=== PATIENT | female | born 1985 | race Caucasian/White ===

== ENCOUNTER 2017-11-17 08:42 | Emergency (ER) | payer OTHER ==
[~2017-11-17] VITALS: Ht 170.2 cm; Wt 60.0 kg
[2017-11-17 08:46] VITALS: BP 123/67; PULSE 97; RESP 16; TEMP 97.9; O2SAT 100
--- NOTE | 2017-11-17 09:13 | PD ---
HPI Chief Complaint: Pain: Acute or Chronic Time Seen by Provider: 08:54 Travel History International Travel<30 days: No Contact w/Intl Traveler<30days: No Traveled to known affect area: No History of Present Illness HPI 32-year-old female presents emergency department with multiple medical complaints. Says her left hand started swelling approximately 2 days ago and is painful. Says she woke up this with this pain. She denies injury or other trauma to the area. Patient describes the pain as burning and difficulty moving the hand secondary to pain. Patient states that she immersed her hand and salt water and this relieves her pain slightly. Says that heat worsens her pain and cold packs decrease her pain. Patient also states she is concerned about abnormal vaginal bleeding that she has had this month. Patient states that she had a unusually light menses November 06 which stopped but then states she started spotting this week. States that she had a 'clot' discharged yesterday. States she had some left lower quadrant cramping with radiation to her midpelvic region earlier this week but has since resolved. She denies vaginal discharge aside from the bleeding. States that she has a history of ectopic pregnancies 2 and is concerned this may be an ectopic . Patient does not use contraception. She has 1 sexual partner. Patient denies dysuria or other urinary symptoms. Last bowel movement this morning which is normal. She denies chronic medical conditions or medication use. Denies IV drug or other illicit drugs. States she takes Tylenol Motrin for occasional pains. PFSH Past Medical History ?: Unknown LMP: 11/06/17 Social History Tobacco Use: Yes Allergies-Medications (Allergen,Severity, Reaction): Coded Allergies: No Known Allergies (Verified Allergy, Unknown, 11/17/17) Reported Meds & Prescriptions Reported Meds & Active Scripts Active Diflucan (Fluconazole) 150 Mg Tab 150 Mg PO ONCE Take 1 tab 3 days after antibiotics. Bactrim DS (Sulfamethoxazole-Trimethoprim) 800-160 Mg Tab 1 Tab PO BID Keflex (Cephalexin) 500 Mg Cap 500 Mg PO Q8H 7 Days Review of Systems Except as stated in HPI: all other systems reviewed are Neg Physical Exam Narrative GENERAL: Well-developed, well-nourished in no apparent distress resting comfortably in bed SKIN: Focused skin assessment warm/dry. HEAD: Atraumatic. Normocephalic. EYES: Pupils equal and round. No scleral icterus. No injection or drainage. ENT: No nasal bleeding or discharge. Mucous membranes pink and moist. NECK: Trachea midline. No JVD. CARDIOVASCULAR: Regular rate and rhythm. No murmur appreciated. RESPIRATORY: No accessory muscle use. Clear to auscultation. Breath sounds equal bilaterally. GASTROINTESTINAL: Abdomen soft, non-tender, nondistended. No CVA tenderness GENITOURINARY: Normal external genitalia without lesions or erythema. Vaginal vault without blood. Cervical os was closed without drainage. No cervical motion tenderness. Uterus nontender and nonenlarged. Bilateral adnexa nontender without masses. MUSCULOSKELETAL: No obvious deformities. No clubbing. No cyanosis. No edema. Left hand-dorsal hand demonstrates erythema with mild edema just distal to the wrist between the first and second digits. Neurovascularly intact. NEUROLOGICAL: Awake and alert. No obvious cranial nerve deficits. Motor grossly within normal limits. Normal speech. PSYCHIATRIC: Appropriate mood and affect; insight and judgment normal. Data Data Last Documented VS Vital Signs Date Time Temp Pulse Resp B/P (MAP) Pulse Ox O2 Delivery O2 Flow Rate FiO2 11/17/17 11:52 75 18 130/70 (90) 98 11/17/17 08:46 97.9 Orders Orders Beta Hcg (Quant/Titer) (11/17/17 09:03) Complete Blood Count With Diff (11/17/17 09:03) Comprehensive Metabolic Panel (11/17/17 09:03) Urinalysis - C+S If Indicated (11/17/17 09:03) Act Partial Throm Time (Ptt) (11/17/17 09:03) Prothrombin Time / Inr (Pt) (11/17/17 09:03) Hand, Complete ([id number]) (11/17/17 ) Urine Culture (11/17/17 09:20) Sulfamet-Trimeth Ds 800-160 Mg (Bactrim (11/17/17 11:15) Cephalexin (Keflex) (11/17/17 11:15) Ed Discharge Order (11/17/17 11:10) Labs Laboratory Tests Test 11/17/17 09:20 11/17/17 09:40 Urine Color YELLOW Urine Turbidity CLOUDY Urine pH 6.5 Urine Specific [place] 1.009 Urine Protein TRACE mg/dL Urine Glucose (UA) NEG mg/dL Urine Ketones NEG mg/dL Urine Occult Blood MOD Urine Nitrite NEG Urine Bilirubin NEG Urine Urobilinogen LESS THAN 2.0 MG/DL Urine Leukocyte Esterase NEG Urine RBC LESS THAN 1 /hpf Urine WBC 10 /hpf Urine Squamous Epithelial Cells 68 /hpf Urine Bacteria FEW /hpf Urine Yeast with Hyphae OCC Microscopic Urinalysis Comment CULTURE INDICATED White Blood Count 11.5 TH/MM3 Red Blood Count 4.77 MIL/MM3 Hemoglobin 14.2 GM/DL Hematocrit 41.8 % Mean Corpuscular Volume 87.7 FL Mean Corpuscular Hemoglobin 29.7 PG Mean Corpuscular Hemoglobin Concent 33.9 % Red Cell Distribution Width 14.5 % Platelet Count 242 TH/MM3 Mean Platelet Volume 8.3 FL Neutrophils (%) (Auto) 77.6 % Lymphocytes (%) (Auto) 14.5 % Monocytes (%) (Auto) 7.0 % Eosinophils (%) (Auto) 0.5 % Basophils (%) (Auto) 0.4 % Neutrophils # (Auto) 8.9 TH/MM3 Lymphocytes # (Auto) 1.7 TH/MM3 Monocytes # (Auto) 0.8 TH/MM3 Eosinophils # (Auto) 0.1 TH/MM3 Basophils # (Auto) 0.0 TH/MM3 CBC Comment DIFF FINAL Differential Comment Prothrombin Time 10.4 SEC Prothromb Time International Ratio 1.0 RATIO Activated Partial Thromboplast Time 31.0 SEC Blood Urea Nitrogen 8 MG/DL Creatinine 0.87 MG/DL Random Glucose 81 MG/DL Total Protein 7.9 GM/DL Albumin 4.4 GM/DL Calcium Level 9.7 MG/DL Alkaline Phosphatase 69 U/L Aspartate Amino Transf (AST/SGOT) 18 U/L Alanine Aminotransferase (ALT/SGPT) 19 U/L Total Bilirubin 0.3 MG/DL Sodium Level 136 MEQ/L Potassium Level 4.1 MEQ/L Chloride Level 102 MEQ/L Carbon Dioxide Level 26.3 MEQ/L Anion Gap 8 MEQ/L Estimat Glomerular Filtration Rate 76 ML/MIN Human Chorionic Gonadotropin, Quant LESS THAN 1 MIU/ML MDM Medical Decision Making Medical Screen Exam Complete: Yes Emergency Medical Condition: Yes Differential Diagnosis ectopic , painful vaginal bleeding, left hand cellulitis, abscess, fracture. Narrative Course 32-year-old female presents emergency department with multiple complaints. States that her really since her period November 06. She is concerned that it may be an ectopic as she has had these before. Vital stable. Patient is afebrile. Exam findings suggestive of cellulitis left hand. Pelvic exam essentially unremarkable except for blood in the vaginal vault. No discharge or odor. Labs and imaging studies ordered. Last Impressions Hand X-Ray 11/17/17 0000 Signed Impressions: Service Date/Time: Friday, November 17, 2017 09:28 - CONCLUSION: 1. Negative examination. Chin Moran MD First dose of Keflex and Bactrim will be administered emergency department today. Patient will be prescribed Keflex and Bactrim for her cellulitis. Urinalysis possibly suggestive of a urinary tract infection. These medications will cover this as well. Yeast from the urine, will cover with Diflucan advised to use after the course of antibiotics. There was no evidence of vaginal candidiasis today. Diagnosis Primary Impression: Cellulitis Qualified Codes: L03.114 - Cellulitis of left upper limb Additional Impression: Abnormal vaginal bleeding Referrals: Color Straining Bag Washer Additional Instructions: Follow-up with the electronics research engineer as discussed. Take all medications as prescribed. Follow-up with primary care physician this month as discussed. Scripts Fluconazole (Diflucan) 150 Mg Tab 150 MG PO ONCE for Infection, #1 TAB 0 Refills Take 1 tab 3 days after antibiotics. Prov: Lizeth Flores 11/17/17 Sulfamethoxazole-Trimethoprim (Bactrim DS) 800-160 Mg Tab 1 TAB PO BID for Infection, #14 TAB 0 Refills Prov: Lizeth Flores 11/17/17 Cephalexin (Keflex) 500 Mg Cap 500 MG PO Q8H for Infection for 7 Days, #21 CAP 0 Refills Prov: Lizeth Flores 11/17/17 Disposition: 01 DISCHARGE HOME Condition: Stable Lizeth Flores Nov 17, 2017 09:13
--- NOTE | 2017-11-17 09:48 | RADRPT ---
EXAM DATE/TIME: 11/17/2017 09:28 [place] COMPARISON: No previous studies available for comparison. INDICATIONS : Left hand pain and swelling after a possible bite. MEDICAL HISTORY : None. SURGICAL HISTORY : None. ENCOUNTER: Initial ACUITY: 3 days PAIN SCORE: 6/10 LOCATION: Left anterior thumb FINDINGS: Three view examination of the left hand demonstrates no soft tissue swelling, dislocation, or fractur e. The carpal bones appear intact. The interphalangeal and metacarpophalangeal joints are intact. Bony mineralization is normal. CONCLUSION: 1. Negative examination. Chin Moran MD on November 17, 2017 at 9:43 Board Certified Radiologist. This report was verified electronically.
[2017-11-17 10:13] LABS: AUTOMATED NEUTROPHIL # 8.9 TH/MM3 (1.8-7.7); BASOPHIL % 0.4 % (0.0-2.0); EOSINOPHIL # 0.1 TH/MM3 (0-0.4); EOSINOPHIL % 0.5 % (0.0-4.0); HEMATOCRIT 41.8 % (35.0-46.0); HEMOGLOBIN 14.2 GM/DL (11.6-15.3); LYMPH % 14.5 % (9.0-44.0); LYMPHOCYTE # 1.7 TH/MM3 (1.0-4.8); MEAN CELL VOLUME 87.7 FL (80.0-100.0); MEAN CORPUSCULAR HEMOGLOBIN 29.7 PG (27.0-34.0); MEAN CORPUSCULAR HGB CONC 33.9 % (32.0-36.0); MEAN PLATELET VOLUME 8.3 FL (7.0-11.0); MONOCYTE # 0.8 TH/MM3 (0-0.9); NEUT % 77.6 % (16.0-70.0); PLATELET COUNT 242 TH/MM3 (150-450); RED BLOOD COUNT 4.77 MIL/MM3 (4.00-5.30); RED CELL DISTRIBUTION WIDTH 14.5 % (11.6-17.2); WHITE BLOOD COUNT 11.5 TH/MM3 (4.0-11.0)
[2017-11-17 10:22] LABS: PROTHROMBIN TIME - PATIENT 10.4 SEC (9.8-11.6)
[2017-11-17 10:33] LABS: ALT (GPT) 19 U/L (10-53)
[2017-11-17 10:36] LABS: ALKALINE PHOSPHATASE 69 U/L (45-117); TOTAL BILIRUBIN ADULT 0.3 MG/DL (0.2-1.0); TOTAL PROTEIN 7.9 GM/DL (6.4-8.2)
[2017-11-17 10:36] LABS: BACTERIA, URINE FEW /hpf; BILIRUBIN, URINE NEG (NEG); BLOOD, URINE MOD (NEG); GLUCOSE,URINE NEG (NEG); KETONE, URINE NEG (NEG); NITRITE,URINE NEG (NEG); PH, URINE 6.5 (5.0-8.5); SQUAMOUS EPITHELIAL CELL URINE 68 /hpf (0-5); URINE COLOR YELLOW (YELLW/STRAW); URINE LEUKOCYTE ESTERASE NEG (NEG)
[2017-11-17] MEDS ORDERED: CEPH-460 PO (10:48)
[2017-11-17] MEDS ORDERED: BACT800T5 PO (10:48)
--- NOTE | 2017-11-17 10:57 | PD ---
Physical Exam Date Seen by Provider: Nov 17, 2017 Narrative This patient presents with 2 complaints. She has left lower quadrant abdominal pain and she has cellulitis of her left hand Data Data Last Documented VS Vital Signs Date Time Temp Pulse Resp B/P (MAP) Pulse Ox O2 Delivery O2 Flow Rate FiO2 11/17/17 08:46 97.9 97 16 123/67 (85) 100 Orders Orders Beta Hcg (Quant/Titer) (11/17/17 09:03) Complete Blood Count With Diff (11/17/17 09:03) Comprehensive Metabolic Panel (11/17/17 09:03) Urinalysis - C+S If Indicated (11/17/17 09:03) Act Partial Throm Time (Ptt) (11/17/17 09:03) Prothrombin Time / Inr (Pt) (11/17/17 09:03) Hand, Complete ([id number]) (11/17/17 ) Urine Culture (11/17/17 09:20) Labs Laboratory Tests Test 11/17/17 09:20 11/17/17 09:40 Urine Color YELLOW Urine Turbidity CLOUDY Urine pH 6.5 Urine Specific [place] 1.009 Urine Protein TRACE mg/dL Urine Glucose (UA) NEG mg/dL Urine Ketones NEG mg/dL Urine Occult Blood MOD Urine Nitrite NEG Urine Bilirubin NEG Urine Urobilinogen LESS THAN 2.0 MG/DL Urine Leukocyte Esterase NEG Urine RBC LESS THAN 1 /hpf Urine WBC 10 /hpf Urine Squamous Epithelial Cells 68 /hpf Urine Bacteria FEW /hpf Urine Yeast with Hyphae OCC Microscopic Urinalysis Comment CULTURE INDICATED White Blood Count 11.5 TH/MM3 Red Blood Count 4.77 MIL/MM3 Hemoglobin 14.2 GM/DL Hematocrit 41.8 % Mean Corpuscular Volume 87.7 FL Mean Corpuscular Hemoglobin 29.7 PG Mean Corpuscular Hemoglobin Concent 33.9 % Red Cell Distribution Width 14.5 % Platelet Count 242 TH/MM3 Mean Platelet Volume 8.3 FL Neutrophils (%) (Auto) 77.6 % Lymphocytes (%) (Auto) 14.5 % Monocytes (%) (Auto) 7.0 % Eosinophils (%) (Auto) 0.5 % Basophils (%) (Auto) 0.4 % Neutrophils # (Auto) 8.9 TH/MM3 Lymphocytes # (Auto) 1.7 TH/MM3 Monocytes # (Auto) 0.8 TH/MM3 Eosinophils # (Auto) 0.1 TH/MM3 Basophils # (Auto) 0.0 TH/MM3 CBC Comment DIFF FINAL Differential Comment Prothrombin Time 10.4 SEC Prothromb Time International Ratio 1.0 RATIO Activated Partial Thromboplast Time 31.0 SEC Total Protein 7.9 GM/DL Alkaline Phosphatase 69 U/L Alanine Aminotransferase (ALT/SGPT) 19 U/L Total Bilirubin 0.3 MG/DL Human Chorionic Gonadotropin, Quant LESS THAN 1 MIU/ML MDM Supervised Visit with HUGH: Yes Narrative Course I, Dr. Goff, have reviewed the advance practice practitioner's documentation and am in agreement, met with the patient face to face, made the diagnosis, and the medical decision making was done by me. *My assessment and Findings: Left hand has redness, warmth and swelling diffusely on the dorsal aspect of the hand. She is able to move her fingers. Abdomen is soft but does have some tenderness to palpation just above the left symphysis pubis. test is negative. Please see Lizeth Flores PA-C's note for further details, lab and radiology results, final diagnosis and disposition. Diagnosis Primary Impression: Cellulitis Qualified Codes: L03.114 - Cellulitis of left upper limb Referrals: Flight/Transport Nurse Additional Instruction: Follow-up with the sandstone splitter as discussed. Take all medications as prescribed. Scripts Sulfamethoxazole-Trimethoprim (Bactrim DS) 800-160 Mg Tab 1 TAB PO BID for Infection, #14 TAB 0 Refills Prov: Lizeth Flores 11/17/17 Cephalexin (Keflex) 500 Mg Cap 500 MG PO Q8H for Infection for 7 Days, #21 CAP 0 Refills Prov: Lizeth Flores 11/17/17 Disposition: 01 DISCHARGE HOME Condition: Stable Susana Goff MD Nov 17, 2017 10:57
[2017-11-17 11:04] LABS: ALBUMIN 4.4 GM/DL (3.4-5.0); AST (GOT) 18 U/L (15-37); BICARBONATE 26.3 MEQ/L (21.0-32.0); BLOOD UREA NITROGEN 8 MG/DL (7-18); CALCIUM 9.7 MG/DL (8.5-10.1); CHLORIDE 102 MEQ/L (98-107); CREATININE 0.87 MG/DL (0.50-1.00); GLOMERULAR FILTRATION RATE 76 ML/MIN (>89); GLUCOSE,RANDOM 81 MG/DL (74-106); SODIUM (NA) 136 MEQ/L (136-145)
[2017-11-17] MEDS ORDERED: DIFL150T PO (11:07)
[2017-11-17] MEDS ORDERED: CEPHALEXIN MONOHYDRATE 500 MG CAP PO ONE (11:15)
[2017-11-17] MEDS ORDERED: SULFAMETHOXAZOLE-TRIMETHOPRIM DS 800-160 MG TAB PO ONE (11:15)
[2017-11-17 11:52] VITALS: BP 130/70
== END 2017-11-17 11:55 | disposition home or self-care (01) ==
LOC: NEPD 08:42
DX: L03.114 Cellulitis of left upper limb (principal); R10.32 Left lower quadrant pain; R82.71 Bacteriuria; N93.9 Abnormal uterine and vaginal bleeding, unspecified
CPT/HCPCS: 73130; 80053; 81001; 84702; 85025; 85610; 85730; 87086; 99284

== ENCOUNTER 2017-12-06 08:51 | Emergency (ER) | payer SELFPAY ==
[~2017-12-06] VITALS: Ht 170.2 cm; Wt 60.0 kg
[~2017-12-06 08:51] MED LIST: BACT800T5 PO; CEPH-460 PO; DIFL150T PO
[2017-12-06 08:54] VITALS: BP 119/58; PULSE 87; RESP 15; TEMP 97.7; O2SAT 99
[2017-12-06] MEDS ORDERED: PAXI10TA8 PO (09:20)
[2017-12-06] MEDS ORDERED: PROPARACAINE HCL 0.5% OPHT SOLN 15 ML BTL LEFT EYE ONE (09:45)
[2017-12-06] MEDS ORDERED: POLY10O LEFT EYE (09:50)
--- NOTE | 2017-12-06 09:50 | PD ---
HPI Chief Complaint: Eye Problems/Injury Time Seen by Provider: 09:26 Travel History International Travel<30 days: No Contact w/Intl Traveler<30days: No Traveled to known affect area: No History of Present Illness HPI 32-year-old female presents to the emergency department with concern of left pink eye 3 days. Reports her eye is itchy, dry, and draining purulent drainage. She is waking up in the mornings with her eye crusted shut. Denies eye trauma or pain. Denies fever, vomiting, change in vision. No others with similar symptoms that she knows of. Has tried [id number] eyedrops for symptom management. Symptoms are mild in severity. No known aggravating or relieving factors. She is also asking for information on where she can go to get prescriptions for her bipolar manic depression psych medications. She has been off them for 2 years. She denies suicidal or homicidal ideations. Primary care provider is Dr. Bran. No known allergies. Denies significant past medical history. Has no other medical complaints. No other modifying factors or associated signs and symptoms. PFSH Past Medical History Bipolar Disorder: Yes Depression: Yes Diminished Hearing: No Immunizations Current: Yes Tetanus Vaccination: < 5 Years ?: Not Ectopic : Yes Dilation and Curettage (D&C): Yes Past Surgical History Surgical History: No Previous Surgery Gynecologic Surgery: Yes (TUMOR REMOVED ) Social History Alcohol Use: No Tobacco Use: Yes Substance Use: No (DENIES ) Allergies-Medications (Allergen,Severity, Reaction): Coded Allergies: No Known Allergies (Verified Allergy, Unknown, 12/06/17) Reported Meds & Prescriptions Reported Meds & Active Scripts Active Polytrim Opth Drops (Polymyxin/Trimethoprim Sulfate) 10,000-0.1 Unit/Ml-% Soln 2 Drop LEFT EYE Q6HR 7 Days Reported Paxil (Paroxetine HCl) 10 Mg Tab 10 Mg PO DAILY Review of Systems Except as stated in HPI: all other systems reviewed are Neg Physical Exam Narrative GENERAL: Well-nourished, well-developed patient, in no acute distress SKIN: Warm and dry. HEAD: Atraumatic. Normocephalic. EYES: Pupils equal and round at 3 mm with brisk reaction. PERRLA. EOMI. left lid eversion with no foreign body noted. Left eye with scleral erythema and mild lid edema. No orbital tenderness, erythema or cellulitis. Left eye with photophobia. No consensual photophobia. No scleral icterus. Clear drainage; crusted drainage noted to upper and lower eyelashes into the inner canthus. Lerner lamp exam normal. ENT: Mucosa pink and moist. Airway patent. NECK: Trachea midline. CARDIOVASCULAR: Regular rate. GASTROINTESTINAL: Flat. RESPIRATORY: No accessory muscle use. NEUROLOGICAL: Awake and alert. Oriented 3. No obvious cranial nerve deficits. Motor grossly within normal limits. Normal speech. PSYCHIATRIC: Appropriate mood and affect; insight and judgment normal. Data Data Last Documented VS Vital Signs Date Time Temp Pulse Resp B/P (MAP) Pulse Ox O2 Delivery O2 Flow Rate FiO2 12/06/17 08:54 97.7 87 15 119/58 (78) 99 Orders Orders Proparacaine 0.5% Opth Soln (Alcaine 0.5 (12/06/17 09:45) Ed Discharge Order (12/06/17 09:50) MDM Medical Decision Making Medical Screen Exam Complete: Yes Emergency Medical Condition: Yes Medical Record Reviewed: Yes Differential Diagnosis Bacterial conjunctivitis, viral conjunctivitis, allergic conjunctivitis, corneal abrasion, foreign body Narrative Course 32-year-old female physical exam and HPI consistent with left eye conjunctivitis. Polytrim eyedrops prescribed for home. Patient was provided information for outpatient follow-up for [facility]. Instructed patient to follow up with primary care provider. Patient verbalizes understanding and agreement with treatment plan. Patient is medically cleared and stable for discharge. Discussed reasons to return to the emergency department. Patient agrees with treatment plan. The patients vital signs are stable and the patient is stable for outpatient follow- up and treatment. Patient discharged home, stable and in no acute distress. Diagnosis Primary Impression: Conjunctivitis, left eye Qualified Codes: H10.9 - Unspecified conjunctivitis Referrals: [facility] (Out patient) [facility] Primary Care Physician Lily SANDOVAL Behavioral Patient Instructions: Conjunctivitis (ED), General Instructions Departure Forms: Tests/Procedures, Work Release Enter return to work date: Dec 07, 2017 Additional Instructions: Conjunctivitis is contagious Use antibiotic eye drops as prescribed Apply warm or cool compresses to both eyes for a few minutes several times daily to minimize irritation Avoid triggers, such as allergens, that may irritate your eyes Wash your hands frequently Do not share washcloths, towels, pillows, or any other material that has touched your eyes with any other household members Follow-up with your primary care provider Follow-up with ophthalmology as needed Return to the emergency department immediately with worsening of symptoms Med/Other Pt SpecificInfo: Prescription(s) given Scripts Polymyxin B-Trimethoprim Opth Drops (Polytrim Opth Drops) 10,000-0.1 Unit/Ml-% Soln 2 DROP LEFT EYE Q6HR for Mgmt Bacterial Infection for 7 Days, #1 BOTTLE 0 Refills Prov: Christina Roberts 12/06/17 Disposition: 01 DISCHARGE HOME Condition: Stable Christina Roberts Dec 06, 2017 09:50
== END 2017-12-06 09:59 | disposition home or self-care (01) ==
LOC: NEPK 08:51
DX: H10.9 Unspecified conjunctivitis (principal); F31.9 Bipolar disorder, unspecified; Z72.0 Tobacco use
CPT/HCPCS: 99283